=== PATIENT | female | born 1955 | race Two or more races ===

== ENCOUNTER 2020-09-05 07:00 | Inpatient (IN) | payer OTHER ==
[~2020-09-05] VITALS: Ht 137.2 cm; Wt 59.0 kg
[~2020-09-05 07:00] MED LIST: ADVAIR 2501 DISK W/1 IH; CEFADROXIL500 MG PO; COZAAR100 MG PO; PERCOCET 5/321 UDTAB PO; SIMVASTATIN40 MG PO; SINGULAIR 10MG10 MG PO; SYNTHROID75 MCG PO; XARELTO10 MG PO
[2020-09-05] MEDS ORDERED: SYNTHROID88 MCG PO (08:35)
[2020-09-05] MEDS ORDERED: SIMVAST PO (08:36)
[2020-09-05] MEDS ORDERED: SYNTHROID75 MCG PO (08:36)
[2020-09-05] MEDS ORDERED: SYMB (08:37)
[2020-09-05] MEDS ORDERED: ALBUTERO (08:38)
[2020-09-05] MEDS ORDERED: [UNRECOGNIZED DRUG - CODE] (08:38)
[2020-09-05] MEDS ORDERED: TRAMA (08:39)
[2020-09-13] MEDS ORDERED: VITAMIN D350 MCG (08:20)
[2020-09-13] MEDS ORDERED: LOSARTAN POTASS50 MG (08:21)
[2020-09-13] MEDS ORDERED: LANSOPRAZOLE30 MG (08:21)
[2020-09-13] MEDS ORDERED: BACLOFEN10 MG (08:21)
[2020-09-13] MEDS ORDERED: DICLOFENAC SOD100 MG (08:21)
[2020-09-13] MEDS ORDERED: SYMBICORT 16010.2 GM (08:24)
[2020-09-13] MEDS ORDERED: TRAM1TAB98 (08:28)
[2020-09-13] MEDS ORDERED: PROAIR HFA8.5 GM (08:28)
[2020-09-13] MEDS ORDERED: ALEVE220 M1 PO (08:44)
[2020-09-13] MEDS ORDERED: DUI500 PO (08:44)
[2020-09-13] MEDS ORDERED: PERCOCET 5-3251 EACH PO (08:44)
== END 2020-09-13 15:14 | disposition home or self-care (01) | DRG 483 ==
LOC: ADM 07:00 → O/R 09-12 05:00 → SURG 09-12 05:00 → SURH 09-12 07:00 → EDSTATUS 09-12 07:00 → CIR.AMB 09-12 07:00 → SURH 09-12 09:15 → SURG 09-12 15:18
PROVIDERS: ADMIT Orthopaedic Surgery; ATTEND Orthopaedic Surgery
PROC: 0RRJ00Z Replacement of Right Shoulder Joint with Reverse Ball and Socket Synthetic Substitute, Open Approach (ICD-10-PCS; principal; 2020-09-12 09:15)
DX: M19.011 Primary osteoarthritis, right shoulder (principal)